=== PATIENT | female | born 1950 | race Caucasian/White ===

== ENCOUNTER 2019-03-29 07:22 | Day surgery (SDC) | payer MEDICARE, MEDICAID, SELFPAY ==
[2019-03-29] MEDS: PROPARACAINE 0.5% OPHTH SOL 2 DROPS EYE-OP (07:42)
[2019-03-29] MEDS: CATARACT EYE COMPOUND (10 DROPS/SYRINGE) 3 DROPS EYE-OP (07:49)
[2019-03-29 07:50] VITALS: BMI 39.5
[2019-03-29 07:55] VITALS: BP 133/66; PULSE 70; RESP 15; TEMP 36.2; O2SAT 94
[2019-03-29] MEDS: INSULIN ASPART 100 UNIT/ML 10ML VIAL SUBCUT (08:13)
--- NOTE | 2019-03-29 09:09 | PM.PREOP ---
Pre-operative Note Interval Note History & Physical reviewed/Exam performed by Physician: No Changes to H&P: No
--- NOTE | 2019-03-29 09:09 | PM.OP.1 ---
Operative Date/Time/Diagnoses Pre-op diagnosis: Nuclear Cataract Left eye Post-op diagnosis: same Procedure & Clinicians Surgeon: Donal Fry Anesthesia Type: MAC +/- and Sedation Operative Notes Procedure in detail: Patient brought to the operating suite. Tetracaine drops placed in the left eye. Patient was prepped and draped in sterile manner. Wire lid speculum was placed in the eye. Betadine drops were placed on the eye. This was irrigated. Lidocaine jelly was placed on the eye. A paracentesis port was created with a side-port blade. 0.1 mL 1% preservative free lidocaine was injected into the anterior chamber. The anterior chamber was deepened with viscoelastic. 2.6 mm keratome was used to create a temporal clear corneal incision. Cystotome and Utrata forceps were used to create continuous tear capsulorrhexis. Balanced salt solution was used to hydro dissect the nucleus. The phacoemulsification handpiece was inserted and the nucleus was removed using the stop and chop technique. The irrigation aspiration handpiece was inserted and the remaining cortex was removed. Anterior chamber was deepened with viscoelastic. An Amaro ZCB00 intraocular lens with a power of 16.0 was injected into the capsular bag. Irrigation aspiration handpiece was inserted and the remaining viscoelastic was removed. Incision was hydrated with balanced salt solution and found to be leak free with pressure with Weck-Rachana sponges. 0.1 mL Vigamox injected anterior chamber. 0.3 mL Kenalog 10 mg was injected subconjunctivally. Lid speculum was removed. The patient left the operating room in excellent condition. Complications: none Condition: stable Disposition: same day surgery
--- NOTE | 2019-03-29 09:29 | SUR.OPER ---
Supine on eye stretcher, head on extension cradle secured with tape. Arms tucked at sides with blanket. Pillow under knees.
[2019-03-29] MEDS: TRIAMCINOLONE 50 MG/5 ML VIAL INJ (09:31)
[2019-03-29] MEDS: PHENYLEPHRINE/LIDOCAINE VIAL (OR) 0.2 ML EYE-OP (09:31)
[2019-03-29] MEDS: MOXIFLOXACIN OPHTH DROPS 3 ML BOTTLE 2 DROPS INJ (09:31)
[2019-03-29] MEDS: CHONDROIDTIN/SOD HYALURONATE 1.05 ML SYRINGE INTRAOCULA (09:32)
[2019-03-29] MEDS: BALANCED SALT IRRIG SOLN NO.2 500 ML, EPINEPHrine 1 MG IRR (09:32)
[2019-03-29] MEDS: LIDOCAINE JELLY 2% 5 ML 1 APPLIC TOP (09:32)
[2019-03-29] MEDS: TETRACAINE 0.5% OPHTH DROPS 4 ML 2 DROPS EYE-OP (09:32)
[2019-03-29 09:44] VITALS: BP 130/63; PULSE 62; RESP 15; TEMP 36.6; O2SAT 97
--- NOTE | 2019-03-29 10:01 | SUR.PHASEII ---
Blood sugar 203 after procedure, Dr Garcia made aware, no new orders, pt voiced she is very comfortable treating her blood sugar at home.
== END 2019-03-29 10:01 | disposition home or self-care (01) ==
LOC: OR 07:24
PROVIDERS: Visit Provider Ophthalmology
PROC: (CPT 66984; principal; 2019-03-29 09:15)
DX: H25.12 Age-related nuclear cataract, left eye (principal); E11.9 Type 2 diabetes mellitus without complications; I10 Essential (primary) hypertension; Z79.84 Long term (current) use of oral hypoglycemic drugs
CPT/HCPCS: 66984; J0171; J2250; J3301

== ENCOUNTER 2019-04-12 07:10 | Day surgery (SDC) | payer MEDICARE, MEDICAID, SELFPAY ==
[2019-04-12 07:28] VITALS: BP 126/69; PULSE 65; RESP 16; TEMP 36.4; O2SAT 96; BMI 40.0
[2019-04-12] MEDS: PROPARACAINE 0.5% OPHTH SOL 2 DROPS EYE-OP (07:42)
[2019-04-12] MEDS: CATARACT EYE COMPOUND (10 DROPS/SYRINGE) 3 DROPS EYE-OP (07:44)
--- NOTE | 2019-04-12 08:30 | PM.PREOP ---
Pre-operative Note Interval Note History & Physical reviewed/Exam performed by Physician: No Changes to H&P: No
--- NOTE | 2019-04-12 08:30 | PM.OP.1 ---
Operative Date/Time/Diagnoses Pre-op diagnosis: Nuclear cataract right eye Procedure & Clinicians Procedure: Cataract Surgery Same procedure as scheduled: Yes Surgeon: Donal Fry Anesthesia Type: MAC +/- and Sedation Operative Notes Procedure in detail: Patient brought to the operating suite. Tetracaine drops placed in the right eye. Patient was prepped and draped in sterile manner. Wire lid speculum was placed in the eye. Betadine drops were placed on the eye. This was irrigated. Lidocaine jelly was placed on the eye. A paracentesis port was created with a side-port blade. 0.1 mL 1% preservative free lidocaine was injected into the anterior chamber. The anterior chamber was deepened with viscoelastic. 2.6 mm keratome was used to create a temporal clear corneal incision. Cystotome and Utrata forceps were used to create continuous tear capsulorrhexis. Balanced salt solution was used to hydro dissect the nucleus. The phacoemulsification handpiece was inserted and the nucleus was removed using the stop and chop technique. The irrigation aspiration handpiece was inserted and the remaining cortex was removed. Anterior chamber was deepened with viscoelastic. An Amaro ZCB00 intraocular lens with a power of 16.0 was injected into the capsular bag. Irrigation aspiration handpiece was inserted and the remaining viscoelastic was removed. Incision was hydrated with balanced salt solution and found to be leak free with pressure with Weck-Rachana sponges. 0.1 mL Vigamox injected anterior chamber. 0.3 mL Kenalog 10 mg was injected subconjunctivally. Lid speculum was removed. The patient left the operating room in excellent condition. Complications: none Condition: stable Disposition: same day surgery
--- NOTE | 2019-04-12 08:41 | SUR.OPER ---
Supine on eye stretcher, head on extension cradle secured with tape. Arms tucked at sides with blanket. Pillow under knees.
[2019-04-12] MEDS: TRIAMCINOLONE 50 MG/5 ML VIAL INJ (08:47)
[2019-04-12] MEDS: MOXIFLOXACIN OPHTH DROPS 3 ML BOTTLE 2 DROPS INJ ×2 (08:47)
[2019-04-12] MEDS: CHONDROIDTIN/SOD HYALURONATE 1.05 ML SYRINGE INTRAOCULA (08:48)
[2019-04-12] MEDS: LIDOCAINE JELLY 2% 5 ML 1 APPLIC TOP (08:48)
[2019-04-12] MEDS: TETRACAINE 0.5% OPHTH DROPS 15 ML 2 DROPS EYE-RIGHT (08:49)
[2019-04-12] MEDS: BALANCED SALT IRRIG SOLN NO.2 500 ML, EPINEPHrine 1 MG IRR (08:49)
[2019-04-12 08:55] VITALS: BP 126/60; PULSE 62; RESP 16; TEMP 36.7; O2SAT 97
[2019-04-12] MEDS: PHENYLEPHRINE/LIDOCAINE VIAL (OR) 0.2 ML EYE-OP (10:13)
== END 2019-04-12 09:06 | disposition home or self-care (01) ==
LOC: OR 07:13
PROVIDERS: Visit Provider Ophthalmology
PROC: (CPT 66984; principal; 2019-04-12 08:45)
DX: H25.11 Age-related nuclear cataract, right eye (principal); E11.9 Type 2 diabetes mellitus without complications; I10 Essential (primary) hypertension
CPT/HCPCS: 66984; J0171; J2250; J3010; J3301